=== PATIENT | female | born 1965 | race American Indian/Alaskan Native ===

== ENCOUNTER 2018-06-12 15:02 | Outpatient (CLI) | payer BC ==
--- NOTE | 2018-06-12 16:00 | Ultrasound Report ---
TARGETED LEFT BREAST ULTRASOUND: 06/12/18 15:02:00 CLINICAL: A left inner mammographic asymmetry. COMPARISON: 05/28/18 and 06/05/18 mammograms FINDINGS: Ultrasoundof the inner left breast was performed from 12 o'clock to 6 o'clock and demonstrated normal fibroglandular structures. No mass, cyst or shadowing correlate with the mammographic density. IMPRESSION: Negative left breast ultrasound but a suspicious mammographic asymmetry. BI-RADS 4--Suspicious RECOMMENDATION: Stereotactic biopsy of the left breast.
== END 2018-06-12 15:03 | disposition home or self-care (01) ==
LOC: SPVWC 15:02
PROVIDERS: ATTEND Surgery
DX: R92.1 Mammographic calcification found on diagnostic imaging of breast (principal); I10 Essential (primary) hypertension; J45.909 Unspecified asthma, uncomplicated

== ENCOUNTER 2021-06-14 14:02 | Outpatient (CLI) | payer BC ==
--- NOTE | 2021-06-15 07:56 | Mammography Report ---
BILATERAL DIGITAL SCREENING MAMMOGRAM WITH CAD HISTORY: Screening mammogram. TECHNIQUE: Routine digital mammographic imaging performed. This examination was interpreted with johnathan cao benefit of Computer-aided Detection analysis. COMPARISON: 06/01/2020, 05/30/2019, 05/28/2018. FINDINGS: Breast Density: scattered fibroglandular appearance of the breast tissue. Digital CC and MLO views demonstrate no mammographic evidence of malignancy. A few scattered calcifi cations within the central regions of both breasts appear not significantly changed. Left medial corona st biopsy marker is again noted. IMPRESSION: No mammographic evidence of malignancy. If the clinical examination remains stable, recommend bilate ral mammogram in approximately one year. BIRADS 2: Benign Finding(s). FURTHER INFORMATION: According to the [employer], yearly mammograms are recommend ed starting at age 40 and continuing as long as a woman is in good health. Clinical Breast Exams shou ld be part of a periodic health exam-about every 3 years for women in their 20s and 30s and every yea r for women 40 and over. Breast self exam is an option for women starting in their 20s. Any breast ch tavon noted on a breast self exam should be reported promptly to the patient's healthcare provider. Br east MRI is recommended for women with an approximately 20-25% or greater lifetime risk of breast can cer, including women with a strong family history of breast or ovarian cancer and women who have been treated for Hodgkin's disease. A negative Mammography report should not discourage follow up or biopsy of a clinically significant f inding and/or abnormality. Dense breast tissue may obscure small neoplasms. The patient will be entered into a reminder system with a target due date for the next screening mamm ogram. Signer Name: Raul Cm MD Signed: 06/15/2021 7:52 AM Workstation Name: [id number]
== END 2021-06-14 14:03 | disposition home or self-care (01) ==
LOC: SPVWC 14:02
PROVIDERS: ATTEND Surgery
DX: Z12.31 Encounter for screening mammogram for malignant neoplasm of breast (principal); N64.89 Other specified disorders of breast
CPT/HCPCS: 77067